=== PATIENT | female | born 1980 | race Hispanic/Latino ===

== ENCOUNTER 2017-12-01 16:45 | Inpatient (IN) | payer MEDICAID, OTHER ==
[2017-12-01 17:56] LABS: BASO # 0.1 K/uL (0.0-0.2); BASO % 0.8 % (0.0-2.0); EOS # 0.2 K/uL (0.0-0.7); EOS % 2.1 % (0.0-4.0); HEMOGLOBIN 11.8 g/dL (11.0-16.0); LYMPH # 3.7 K/uL (1.0-4.3); LYMPH % 32.2 % (20.0-40.0); MEAN CELL VOLUME 85.6 fL (81.0-99.0); MEAN CORPUSCULAR HEMOGLOBIN 29.2 pg (27.0-31.0); MEAN CORPUSCULAR HGB CONC 34.1 g/dL (33.0-37.0); MEAN PLATELET VOLUME 6.8 fL (7.2-11.7); MONO # 0.6 K/uL (0.0-0.8); MONO % 5.3 % (0.0-10.0); NEUT # 6.9 K/uL (1.8-7.0); NEUT % 59.6 % (50.0-75.0); NRBC % 0.1 % (0.0-2.0); RBC 4.02 Mil/uL (3.80-5.20); RED CELL DISTRIBUTION WIDTH 13.5 % (11.5-14.5); WHITE BLOOD COUNT 11.6 K/uL (4.8-10.8)
[2017-12-01 18:06] LABS: SQUAMOUS EPITHIAL 12 /hpf (0-5); URINE BILIRUBIN NEGATIVE (NEGATIVE); URINE BLOOD NEGATIVE (NEGATIVE); URINE CLARITY Hazy (Clear); URINE COLOR Yellow (YELLOW); URINE GLUCOSE (UA) NORMAL (Normal); URINE LEUKOCYTE ESTERASE NEG Leu/uL (Negative); URINE PROTEIN NEGATIVE (NEGATIVE)
[2017-12-01 18:08] LABS: HCG,QUALITATIVE URINE POSITIVE (NEGATIVE)
[2017-12-01 18:15] LABS: ALB/GLOB RATIO 1.1 (1.0-2.1); ALBUMIN 3.6 g/dL (3.5-5.0); ALT/SGPT 21 U/L (9-52); AST/SGOT 17 U/L (14-36); BLOOD UREA NITROGEN 6 mg/dL (7-17); CALCIUM 8.8 mg/dl (8.6-10.4); GFR AFRICAN-AMERICAN > 60; GFR NON-AFRICAN AMERICAN > 60
[2017-12-01 18:27] LABS: BARBITURATES, UR NEGATIVE (NEGATIVE); BENZODIAZEPINES, UR NEGATIVE (NEGATIVE); PHENCYCLIDINE, UR NEGATIVE (NEGATIVE)
[2017-12-01 18:31] LABS: OPIATES, UR POSITIVE (NEGATIVE)
--- NOTE | 2017-12-01 19:44 | C.PDOC ---
History Of Present Illness Pt is here requesting detox from opioid pain pills. She also states that she is 8 weeks . She has documentation from another ER stating that she has an IUP. Time Seen by Provider: 12/01/17 18:14 Chief Complaint (Nursing): Substance Abuse History Per: Patient, Family Onset/Duration Of Symptoms: Days Current Symptoms Are (Timing): Still Present Suicide/Self Injury Attempted (Context): None Modifying Factor(s): Narcotics Severity: Moderate Associated Symptoms: denies: Suicidal Thoughts, Suicidal Plan Additional History Per: Prior Records Past Medical History Reviewed: Historical Data, Nursing Documentation, Vital Signs Vital Signs: Last Vital Signs Temp 97.8 F 12/01/17 17:03 Pulse 71 12/01/17 17:03 Resp 18 12/01/17 17:03 BP 112/71 12/01/17 17:03 Pulse Ox 98 12/01/17 17:03 - Medical History PMH: Back Problems Family History: States: Unknown Family Hx - Social History Hx Tobacco Use: Yes Hx Alcohol Use: No Hx Substance Use: Yes (opiates) - Immunization History Hx Tetanus Toxoid Vaccination: Yes Hx Influenza Vaccination: Yes Hx Pneumococcal Vaccination: No Review Of Systems Except As Marked, All Systems Reviewed And Found Negative. Constitutional: Negative for: Fever, Weakness Cardiovascular: Negative for: Chest Pain Respiratory: Negative for: Shortness of Breath Gastrointestinal: Positive for: Abdominal Pain Genitourinary: Negative for: Vaginal Bleeding Musculoskeletal: Negative for: Neck Pain Skin: Negative for: Rash Neurological: Negative for: Weakness, Numbness Physical Exam - Physical Exam Appears: Non-toxic, No Acute Distress Skin: Normal Color, Warm, Dry, No Rash Head: Atraumatic, Normacephalic Eye(s): bilateral: Normal Inspection, PERRL, EOMI Neck: Normal ROM, Supple Cardiovascular: Rhythm Regular Respiratory: Normal Breath Sounds, No Accessory Muscle Use Gastrointestinal/Abdominal: Soft, Tenderness (cramping pain), No Guarding, No Rebound Back: No CVA Tenderness Extremity: Normal ROM Neurological/Psych: Oriented x3, Normal Motor, Normal Sensation ED Course And Treatment - Laboratory Results Result Diagrams: 12/01/17 17:22 12/01/17 17:22 Lab Interpretation: No Acute Changes Urine POC: Positive O2 Sat by Pulse Oximetry: 98 Pulse Ox Interpretation: Normal Disposition Counseled Patient/Family Regarding: Studies Performed, Diagnosis, Smoking Cessation - Disposition Disposition: HOSPITALIZED Disposition Time: 19:46 Condition: STABLE - Clinical Impression Clinical Impression: Opioid dependence, Decision To Admit - Pt Status Changed To: Hospital Disposition Of: Inpatient - Admit Certification Admit to Inpatient:: After my assessment, the patient will require hospitalization for at least two midnights. This is because of the severity of symptoms shown, intensity of services needed, and/or the medical risk in this patient being treated as an outpatient. - InPatient: Physician Admission Certification: I certify that this patient requires 2 or more midnights of care for the following reason:: Detox. - . Bed Request Type: Detox Admitting Physician: Xenia Hardin Patient Diagnosis: Opioid dependence
--- NOTE | 2017-12-01 21:08 | PCM.BM ---
Treatment Plan Problems - Problems identified on initial assessmt Substance Abuse Date Initiated: 12/01/17 Time Initiated: 21:06 Assessment reference: NA Status: Active Treatment assets and liabiliti Patient Assests: adapts well, cooperative, motivated, ADL independent, physically healthy, negotiates basic needs, cognitively intact Patient Liabilities: live alone (Lives with boyfriend), substance abuse (Opiates , Methadone), medical problems (Back Injury x4 months ago) - Milieu Protocol Maintain good personal hygiene: daily Encourage regular showers, daily Remind patient to perform daily oral care, daily Assist patient to perform ADL's (Self) Conduct patient checks and document Observation sheet: Q15 minutes (Safety) Maintain personal safety: every shift Educate patient to report safety concerns to staff, every shift Monitor environment for contraband/sharps Medication safety: Monitor for expected outcome, potential side effects: every shift, Assess barriers to learning: every shift, Assess readiness for medication education: every shift
[2017-12-01] MEDS ORDERED: Aluminum Hydroxide/Magnesium Hydroxide Susp (30 mL) PO PRN (22:12)
[2017-12-02] MEDS: Multiple Vitamins Tab PO SCH (09:28)
--- NOTE | 2017-12-02 21:38 | CP.PCM.CON ---
History of Present Illness - History of Present Illness History of Present Illness: 37 y/o @ ~ 8 wks as per pt states LMP unknown and dated by US at other ER with IUP admitted to detox unit reports abodminal pain that comes and goes x 1 hour. pt denies any nause, vomitng, CP, SOB, dysuira, urgency, freuqency, constipation or fevers, but reprots chills. pt denies any alleviating or exacerbating factors. Pt reports pain localized to lower abdomen and pelvis, reports hard to describe. pt reprots she would like to continue care of and has an OBGYN. Pt reprots she does not want any pain medication because she states she knows it can affect the baby. OB: SAB DxC, Ruptured Ectopic TRANSCRIPTION TYPIST: Cannot remember courtesy clerk name, last visit unknown, denies any pertient hx of abnromal pap, fibroids, ovarian cyst, STI PMH: Denies, ? Umbilical hernia PSH: DxC, Ex Lap Salpingectomy FHX: denies SHX: hx of Toabccous use 1ppd/x 22 years now on nicotine replacement patch MEDS: Currently methadone Review of Systems - Review of Systems All systems: reviewed and no additional remarkable complaints except - Constitutional Constitutional: Chills - Cardiovascular Cardiovascular: absent: As Per HPI, Acrocyanosis, Chest Pain, Chest Pain at Rest , Chest Pain with Activity, Claudication, Diaphoresis, Dyspnea, Dyspnea on Exertion, Edema, Irregular Heart Rhythm, Pain Radiating to Arm/Neck/Jaw, Leg Edema, Leg Ulcers, Lightheadedness, Orthopnea, Palpitations, Paroxysmal Nocturnal Dyspnea, Pedal Edema, Radiating Pain, Rapid Heart Rate, Slow Heart Rate, Syncope, Other - Gastrointestinal Gastrointestinal: Abdominal Pain. absent: As Per HPI, Belching, Bloating, Change in Bowel Habits, Change in Stool Character, Coffee Ground Emesis, Constipation, Cramping, Diarrhea, Dyspepsia, Dysphagia, Early Satiety, Excessive Flatus, Fecal Incontinence, Heartburn, Hematemesis, Hematochezia, Loose Stools, Melena, Nausea, Odynophagia, Temesmus, Vomiting, Other - Genitourinary Genitourinary: As Per HPI. absent: Change in Urinary Stream, Difficulty Urinating, Dysuria, Flank Pain, Hematuria, Pyuria, Nocturia, Urinary Incontinence, Urinary Frequency, Urinary Hesitance, Urinary Urgency, Voiding Freq/Small Amts, Freq UTI, Hx Renal/Bladder Calculi, Hx /Renal Surgery, Bladder Distension, Other - Reproductive: Female Reproductive:Female: As Per HPI - Menstruation Menstruation: As Per HPI - Musculoskeletal Musculoskeletal: As Per HPI Past Patient History - Past Social History Smoking Status: Heavy Smoker > 10 Cigarettes Daily - CARDIAC Hx Cardiac Disorders: No Hx Hypertension: No - PULMONARY Hx Tuberculosis: No - NEUROLOGICAL HX Cerebrovascular Accident: No Hx Seizures: Yes (The patient reports having a seizure at 23 years old, but not recent) - HEMATOLOGICAL/ONCOLOGICAL Hx Cancer: No Hx Human Immunodeficiency Virus (HIV): No - MUSCULOSKELETAL/RHEUMATOLOGICAL Hx Falls: No - GENITOURINARY/GYNECOLOGICAL Hx Sexually Transmitted Disorders: No - PSYCHIATRIC Hx Substance Use: Yes (Opiates, Percocet) - SURGICAL HISTORY Hx Surgeries: Yes Hx Dilation and Curettage: Yes Hx Tubal Ligation: Yes - ANESTHESIA Hx Anesthesia: Yes Hx Anesthesia Reactions: No Hx Malignant Hyperthermia: No Meds Allergies/Adverse Reactions: Allergies Allergy/AdvReac Type Severity Reaction Status Date / Time hydrocodone Allergy RASH Verified 12/01/17 17:08 ibuprofen Allergy RASH Verified 12/01/17 17:08 - Medications Medications: Current Medications Al Hydrox/Mg Hydrox/Simethicone (Maalox 30 Ml) 30 ml PO TID PRN PRN Reason: Indigestion / Heartburn Clonidine HCl (Catapres) 0.1 mg PO Q8 PRN PRN Reason: COWS Score More or Equal to 5 Loperamide HCl (Imodium) 2 mg PO Q8 PRN PRN Reason: Diarrhea Multivitamins (Hexavitamin) 1 tab PO DAILY [facility] Last Admin: 12/02/17 09:28 Dose: 1 tab Nicotine (Nicoderm Cq) 1 patch TD DAILY [facility] Last Admin: 12/02/17 14:05 Dose: 1 patch Ondansetron HCl (Zofran Tab) 4 mg PO Q8 PRN PRN Reason: Nausea/Vomiting Last Admin: 12/02/17 15:59 Dose: 4 mg Pneumococcal Polyvalent Vaccine (Pneumovax 23 Vaccine) 0.5 ml IM .ONCE ONE Stop: 12/04/17 10:01 Pseudoephedrine HCl (Sudafed Tab) 60 mg PO QID PRN PRN Reason: Nasal/Sinus Congestion Physical Exam - Constitutional Appears: No Acute Distress - Head Exam Head Exam: ATRAUMATIC, NORMAL INSPECTION - Eye Exam Eye Exam: EOMI, Normal appearance Pupil Exam: NORMAL ACCOMODATION - ENT Exam ENT Exam: Mucous Membranes Moist - Neck Exam Neck exam: Positive for: Normal Inspection - Respiratory Exam Respiratory Exam: NORMAL BREATHING PATTERN - Cardiovascular Exam Cardiovascular Exam: +S1, +S2 - GI/Abdominal Exam GI & Abdominal Exam: Soft Additional comments: TTP suprapubic, no guarding, no rebound tendernses, no rigidity, +Umbilical hernia (non tender) - Exam Additional comments: Declined internal exam - Extremities Exam Extremities exam: Negative for: calf tenderness, full ROM, joint swelling, normal capillary refill, normal inspection, pedal edema, tenderness, pedal pulses present - Back Exam Back exam: NORMAL INSPECTION Additional comments: no CVA b/l - Skin Skin Exam: Dry, Intact, Normal Color Results - Vital Signs Recent Vital Signs: Last Vital Signs Temp 98.2 F 12/02/17 20:39 Pulse 67 12/02/17 20:39 Resp 18 12/02/17 20:39 BP 106/63 12/02/17 20:39 Pulse Ox 100 12/02/17 20:39 - Labs Result Diagrams: 12/01/17 17:22 12/01/17 17:22 Assessment & Plan (1) Abdominal pain affecting Assessment and Plan: 1. US: Dating, evaluate viability 2. Pain management as per Primary Team 3. Labs: Beta hcg, progesterone, CBC, CMP, UA, Urine Cx, Type and screen 4. Smoking cessation encouarged 5. Daily vitamin 6. Methadone as per primary team 7. Recommend MFM Consult upon discharge Status: Acute
--- NOTE | 2017-12-02 23:30 | PCM.PSYCH ---
Initial Psychiatric Evaluation - Initial Psychiatric Evaluation Type of Admission: Voluntary Legal Status: Capacity Chief Complaint (in patient's own words): I need help for my drug use. History of Present Illness and Precipitating Events: patient is a 37 years old, single, unemployed, lives with boyfriend, female with no previous psychiatric history was admitted due to withdrawing from opiates. Patient is 8 weeks . Patient reported using Percocet for last 4 months. Initially prescribed but later more than prescribed, was taking up to 6 Percocet dontrell. Last had 2 days ago. Her urine drug screen was. Patient reported thatshe was taking methadone up to 60 mg almost daily for last few days. Denied use of any other drugs including cocaine, cannabis and heroin. patient smokes one pack of cigarett and is requesting for nicotine patch. Patient is currently 8 weeks . She has history of one ectopic in the past. Patient was born in [place], she was in college. Not working. Lives with boyfriend and is supported by her boyfriend. Her height is 5 feet 4 inches and weight is 162 pounds. Current Medications: Active Medications Generic Name Dose Route Start Last Admin Trade Name Freq PRN Reason Stop Dose Admin Al Hydrox/Mg Hydrox/Simethicone 30 ml 12/01/17 22:12 Maalox 30 Ml PO TID PRN Indigestion / Heartburn Clonidine HCl 0.1 mg 12/01/17 22:12 Catapres PO Q8 PRN COWS Score More or Equal to 5 Loperamide HCl 2 mg 12/01/17 22:12 Imodium PO Q8 PRN Diarrhea Multivitamins 1 tab 12/02/17 10:00 12/02/17 09:28 Hexavitamin PO 1 tab DAILY [facility] Administration Nicotine 1 patch 12/02/17 14:00 12/02/17 14:05 Nicoderm Cq TD 1 patch DAILY [facility] Administration Ondansetron HCl 4 mg 12/01/17 22:12 12/02/17 15:59 Zofran Tab PO 4 mg Q8 PRN Administration Nausea/Vomiting Pneumococcal Polyvalent Vaccine 0.5 ml 12/04/17 10:00 Pneumovax 23 Vaccine IM 12/04/17 10:01 .ONCE ONE Pseudoephedrine HCl 60 mg 12/01/17 22:12 Sudafed Tab PO QID PRN Nasal/Sinus Congestion Past Psychiatric History - Past Psychiatric History Previous Treatment History: None History of Abuse: one reported History of ETOH/Drug Use: ee HPI History of Family Illness: reported both of her parents has history of alcohol use disorder. Pertinent Medical Hx (Current Medical&Sleep Prob, Allergies): Allergies Allergy/AdvReac Type Severity Reaction Status Date / Time hydrocodone Allergy RASH Verified 12/01/17 17:08 ibuprofen Allergy RASH Verified 12/01/17 17:08 Ondansetron [Zofran] 4 mg PO Q4 PRN 12/01/17 Oxycodone HCl/Acetaminophen [Percocet 10-325 mg Tablet] 3 each PO QID 12/01/17 Review of Systems - Psychiatric Psychiatric: Anxiety, Other Mental Status Examination - Personal Presentation Personal Presentation: Looks stated age - Affect Affect: Other (APPROPRIATE) - Motor Activity Motor Activity: Calm - Reliability in Providing Information Reliability in Providing Information: Fair - Speech Speech: Organized - Mood Mood: Anxious - Formal Thought Process Formal Thought Process: No Impairment Additional comments: NONE - Hallucinations/Delusions Hallucinations: Other (NONE REPORTED) Delusions: Other - Obsessions/Compulsions Obsessions: None Compulsions: None - Cognitive Functions Orientation: Person, Place, Situation Sensorium: Alert Attention/Concentration: Attentive Abstract Thinking: Aniwa Estimate of Intelligence: Average Judgement: Intact, as evidence by: Insight regarding need for hospitalization Memory: Recent intact, as evidence by: Ability to recall events of the day, Remote intact, as evidenced by: Ability to recall historical events - Risk Risk: Withdrawal, Diminished functioning - Strength & Assets Inventory Strength & Assets Inventory: Cooperative - Limitations Limitations: Other DSM 5 DX - DSM 5 DSM 5 Diagnosis: OPIATE USE DISORDER SEVERE - Recommended/Plan of Treatment Treatment Recommendations and Plan of Treatment: PATIENT EDUCATION Supportive therapy CBT for relapse prevention NE for abstinence Discussed with patient about methadone maintenance or detox. Patient will decide and will do accordingly. Projected ELOS: 45 days - Smoking Cessation Smoking Cessation Initiated: Yes
--- NOTE | 2017-12-02 23:52 | US ---
EXAM: US First Trimester, Transabdominal US , Transvaginal CLINICAL HISTORY: 37 years old, female; Pain; complicated by abdominal or pelvic pain; Generalized abdominal pain; First trimester; Gestational age or lmp: 8wks5d; ; Additional info: 8 weeks iup as pt? Abdomina pain, HX of ectopic TECHNIQUE: Real-time transabdominal and transvaginal obstetrical ultrasound of the maternal pelvis and a first trimester with image documentation. Transvaginal imaging was used for better evaluation of the fetus and adnexa. COMPARISON: No relevant prior studies available. FINDINGS: Gestation: Single live intrauterine gestation. heart rate of 144 beats per minute. Balm-rump length of 1.9 cm, correlating with gestational age of 8 weeks 3 days. Uterus/cervix: Retroverted uterus. No subchorionic hemorrhage. No cervical dilatation or effacement. Ovaries: RIGHT ovary: Normal. LEFT ovary: Probable 1.3 x 1.0 x 1.1 cm corpus luteal cyst. No adnexal masses. Free fluid: No significant free fluid. IMPRESSION: 1. Single live intrauterine gestation. 2. Incidental/non-acute findings are described above.
[2017-12-03 06:49] VITALS: O2SAT 98
[2017-12-03 07:45] LABS: SQUAMOUS EPITHIAL 2 /hpf (0-5); URINE BILIRUBIN NEGATIVE (NEGATIVE); URINE BLOOD NEGATIVE (NEGATIVE); URINE CLARITY Clear (Clear); URINE COLOR Yellow (YELLOW); URINE GLUCOSE (UA) NORMAL (Normal); URINE LEUKOCYTE ESTERASE NEG Leu/uL (Negative); URINE PROTEIN NEGATIVE (NEGATIVE); URINE UROBILINOGEN NORMAL mg/dL (0.2-1.0)
--- NOTE | 2017-12-03 07:56 | CP.PCM.PN ---
Subjective - Date & Time of Evaluation Date of Evaluation: 12/03/17 Time of Evaluation: 07:51 - Subjective Subjective: Patient was seen and examined at bedside. Patient complains of abdominal pain, nausea, chills, diarrhea, cramping, and feels like something is crawling in her legs. Patient states her abdominal pain has not improved nor worsened. Patient states she wants to go home because her withdrawal symptoms are worsening and the medication she has received has not worked. Patient denies chest pain, dyspnea, vomiting, fevers. Objective - Vital Signs/Intake and Output Vital Signs (last 24 hours): Temp Pulse Resp BP Pulse Ox 98.0 F 66 18 134/85 98 12/03/17 06:49 12/03/17 06:49 12/03/17 06:49 12/03/17 06:49 12/03/17 06:49 - Medications Medications: Current Medications Al Hydrox/Mg Hydrox/Simethicone (Maalox 30 Ml) 30 ml PO TID PRN PRN Reason: Indigestion / Heartburn Clonidine HCl (Catapres) 0.1 mg PO Q8 PRN PRN Reason: COWS Score More or Equal to 5 Loperamide HCl (Imodium) 2 mg PO Q8 PRN PRN Reason: Diarrhea Multivitamins (Hexavitamin) 1 tab PO DAILY [facility] Last Admin: 12/02/17 09:28 Dose: 1 tab Nicotine (Nicoderm Cq) 1 patch TD DAILY [facility] Last Admin: 12/02/17 14:05 Dose: 1 patch Ondansetron HCl (Zofran Tab) 4 mg PO Q8 PRN PRN Reason: Nausea/Vomiting Last Admin: 12/02/17 15:59 Dose: 4 mg Pneumococcal Polyvalent Vaccine (Pneumovax 23 Vaccine) 0.5 ml IM .ONCE ONE Stop: 12/04/17 10:01 Pseudoephedrine HCl (Sudafed Tab) 60 mg PO QID PRN PRN Reason: Nasal/Sinus Congestion - Labs Labs: 12/01/17 17:22 12/01/17 17:22 - Head Exam Head Exam: ATRAUMATIC, NORMAL INSPECTION - Eye Exam Eye Exam: EOMI - ENT Exam ENT Exam: Mucous Membranes Moist - Respiratory Exam Respiratory Exam: Clear to Ausculation Bilateral, NORMAL BREATHING PATTERN. absent: Rhonchi, Wheezes, Respiratory Distress - Cardiovascular Exam Cardiovascular Exam: REGULAR RHYTHM, +S1, +S2 - GI/Abdominal Exam GI & Abdominal Exam: Soft, Tenderness (diffuse, all quadrants and suprapubic- described as sharp/cramping). absent: Distended, Firm, Guarding - Extremities Exam Extremities Exam: Normal Inspection. absent: Pedal Edema, Tenderness - Neurological Exam Neurological Exam: Alert, Awake, Oriented x3 - Psychiatric Exam Psychiatric exam: Anxious - Skin Skin Exam: Intact, Normal Color, Warm Assessment and Plan - Assessment and Plan (Free Text) Plan: (1) Abdominal pain affecting Assessment and Plan: US: Dating, evaluate viability Methadone, withdrawal symptom and pain management as per psychiatry team Smoking cessation encouraged Daily vitamin Recommend MFM Consult upon discharge Abdominal pain likely secondary to withdrawal symptoms. Continue current management per psychiatry team. OBGYN signing off. May reconsult as needed.
[2017-12-03] MEDS: Multiple Vitamins Tab PO SCH (09:57)
[2017-12-03 11:18] LABS: BASO % 0.3 % (0.0-2.0); EOS # 0.1 K/uL (0.0-0.7); EOS % 0.9 % (0.0-4.0); HEMOGLOBIN 12.5 g/dL (11.0-16.0); LYMPH # 2.4 K/uL (1.0-4.3); MEAN CELL VOLUME 85.7 fL (81.0-99.0); MEAN CORPUSCULAR HEMOGLOBIN 29.6 pg (27.0-31.0); MEAN CORPUSCULAR HGB CONC 34.6 g/dL (33.0-37.0); MEAN PLATELET VOLUME 6.9 fL (7.2-11.7); MONO # 0.4 K/uL (0.0-0.8); NEUT % 70.8 % (50.0-75.0); RBC 4.21 Mil/uL (3.80-5.20); RED CELL DISTRIBUTION WIDTH 13.4 % (11.5-14.5); WHITE BLOOD COUNT 9.9 K/uL (4.8-10.8)
[2017-12-03 11:40] LABS: ALB/GLOB RATIO 1.1 (1.0-2.1); ALBUMIN 3.6 g/dL (3.5-5.0); ALT/SGPT 13 U/L (9-52); AST/SGOT 17 U/L (14-36); BLOOD UREA NITROGEN 9 mg/dL (7-17); GFR AFRICAN-AMERICAN > 60; GFR NON-AFRICAN AMERICAN > 60
[2017-12-03 12:16] VITALS: RESP 20
[2017-12-03 13:03] VITALS: BP 111/73; PULSE 80; TEMP 98.4
--- NOTE | 2017-12-03 13:31 | PCM.PYCHPN ---
Psychiatric Progress Note - Psychiatric Progress Note Patient seen today, length of contact: 15 minutes Patient Chief Complaint: I'm not feeling well. Problems Identified/Issues Discussed: Patient seen, chart reviewed, case discussed with the staff. Issues related to illness and treatment were discussed with the patient. Reported compliant with treatment with no adverse affects. Today patient reported that she was using more than what she explained yesterday. Patient decided to go to methadone maintenance clinic. We will start methadone 10 mg twice a day until patient will get appointment for methadone maintenance clinic. Mood reported as anxious. Affect appropriate. At the time of evaluation, patient was awake alert oriented 3, had no delusions , no auditory or visual hallucinations, no suicidal ideations or homicidal ideations. Aftercare discussed with the patient. Patient wants to go to methadone maintenance clinic. Patient was evaluated by medical and also by RU[employer]ER INS[employer]ATOR. Medical Problems: Diagnostic Results: Reviewed Medication Change: No Medical Record Reviewed: Yes Consults ordered or reviewed: Reviewed Mental Status Examination - Cognitive Function Orientation: Person, Place, Situation, Time Memory: Intact Attention: WNL Concentration: WNL Association: WN Fund of Knowledge: [facility] Decription of patient's judgement and insights: Fair - Mood Mood: Anxious - Affect Affect: Other (APPROPRIATE) - Speech Speech: Appropriate - Formal Thought Process Formal Thought Process: No Impairment Psychotic Thoughts and Behaviors: None - Suicidal Ideation Suicidal Ideation: No - Homicidal Ideation Homicidal Ideation: No Goal/Treatment Plan - Goal/Treatment Plan Need for Continued Stay: Remain at risks for inpatient hospitalization, Discharge may exacerbated symptoms, Severe functional impairment Progress Toward Problem(s) and Goals/Treatment Plan: PATIENT EDUCATION Supportive therapy CBT for relapse prevention CT for abstinence We will start methadone 10 mg twice a day. Estimated Date of D/C: 12/04/17 - Smoking Cessation Smoking Cessation Initiated: Yes
--- NOTE | 2017-12-03 22:37 | PCM.PYCHDC ---
Mental Status Examination - Mental Status Examination Orientation: Person, Place, Situation, Time Description of patient's judgement and insight: Fair Psychotic Thoughts and Behaviors: None Discharge Summary - Discharge Note Laboratory Data: Abnormal Lab Results 12/03/17 12/03/17 12/03/17 07:13 11:10 11:10 WBC 9.9 RBC 4.21 Hgb 12.5 Hct 36.1 MCV 85.7 MCH 29.6 MCHC 34.6 RDW 13.4 Plt Count 339 MPV 6.9 L Neut % (Auto) 70.8 Lymph % (Auto) 24.0 [place] % (Auto) 4.0 Eos % (Auto) 0.9 Baso % (Auto) 0.3 Neut # (Auto) 7.0 Lymph # (Auto) 2.4 [place] # (Auto) 0.4 Eos # (Auto) 0.1 Baso # (Auto) 0.0 Sodium 136 Potassium 3.9 Chloride 103 Carbon Dioxide 22 Anion Gap 15 BUN 9 Creatinine 0.6 L Est GFR ( Amer) > 60 Est GFR (Non-Af Amer) > 60 Random Glucose 132 H Calcium 9.0 Total Bilirubin 0.4 AST 17 ALT 13 Alkaline Phosphatase 50 Total Protein 6.9 Albumin 3.6 Globulin 3.3 Albumin/Globulin Ratio 1.1 Progesterone 26.0 Beta HCG, Quant 091113.00 Urine Color Yellow Urine Clarity Clear Urine pH 7.0 Ur Specific [place] 1.018 Urine Protein Negative Urine Glucose (UA) Normal Urine Ketones Negative Urine Blood Negative Urine Nitrate Negative Urine Bilirubin Negative Urine Urobilinogen Normal Ur Leukocyte Esterase Neg Urine WBC (Auto) 2 Urine RBC (Auto) < 1 Ur Squamous Epith Cells 2 Blood Type Antibody Screen 12/03/17 11:10 WBC RBC Hgb Hct MCV MCH MCHC RDW Plt Count MPV Neut % (Auto) Lymph % (Auto) [place] % (Auto) Eos % (Auto) Baso % (Auto) Neut # (Auto) Lymph # (Auto) [place] # (Auto) Eos # (Auto) Baso # (Auto) Sodium Potassium Chloride Carbon Dioxide Anion Gap BUN Creatinine Est GFR ( Amer) Est GFR (Non-Af Amer) Random Glucose Calcium Total Bilirubin AST ALT Alkaline Phosphatase Total Protein Albumin Globulin Albumin/Globulin Ratio Progesterone Beta HCG, Quant Urine Color Urine Clarity Urine pH Ur Specific [place] Urine Protein Urine Glucose (UA) Urine Ketones Urine Blood Urine Nitrate Urine Bilirubin Urine Urobilinogen Ur Leukocyte Esterase Urine WBC (Auto) Urine RBC (Auto) Ur Squamous Epith Cells Blood Type A POSITIVE Antibody Screen Negative Consultations:: List each consultation separately and include: 1. Reason for request. 2. Findings. 3. Follow-up Consultations: Reviewed Summary of Hospital Course include:: 1. Description of specific treatment plan utilized for patients during their course of treatmen. 2. Summarize the time- course for resolution of acute symptoms and/or regressed behaviors. 3. Describe issues identified and worked on during hospitalization. 4. Describe medication utilized. 5. Describe medical problems identified and treated. 6. Reassessment of suicide risk Summary of Hospital Course: patient is a 37 years old, single, unemployed, lives with boyfriend, female with no previous psychiatric history was admitted due to withdrawing from opiates. Patient is 8 weeks . Patient reported using Percocet for last 4 months. Initially prescribed but later more than prescribed, was taking up to 6 Percocet dontrell. Last had 2 days ago. Her urine drug screen was. Patient reported thatshe was taking methadone up to 60 mg almost daily for last few days. Denied use of any other drugs including cocaine, cannabis and heroin. patient smokes one pack of cigarett and is requesting for nicotine patch. Patient is currently 8 weeks . She has history of one ectopic in the past. Patient was born in [place], she was in college. Not working. Lives with boyfriend and is supported by her boyfriend. Her height is 5 feet 4 inches and weight is 162 pounds. - Final Diagnosis (DSM 5) Condition upon Discharge: STABLE Disposition: AGAINST MEDICAL ADVICE Follow-up Treatment Plan: PATIENT EDUCATION Supportive therapy CBT for relapse prevention [place] for abstinence We will start methadone 10 mg twice a day.
[2017-12-04] MEDS ORDERED: Influenza Vaccine 60 mcg/0.5 mL SYR (4YR UP) IM ONE (10:00)
[2017-12-04] MEDS ORDERED: Pneumococcal 23-Valent Vaccine IM ONE (10:00)
== END 2017-12-03 17:24 | disposition left against medical advice (07) | DRG 886 ==
LOC: C.ER 16:45 → C.7D 19:47
PROVIDERS: ADMIT Psychiatry & Neurology Psychiatry; ATTEND Psychiatry & Neurology Psychiatry
PROC: HZ2ZZZZ Detoxification Services for Substance Abuse Treatment (ICD-10-PCS; principal; 2017-12-01)
PROC: HZ52ZZZ Individual Psychotherapy for Substance Abuse Treatment, Cognitive-Behavioral (ICD-10-PCS; 2017-12-01)
PROC: HZ59ZZZ Individual Psychotherapy for Substance Abuse Treatment, Supportive (ICD-10-PCS; 2017-12-01)
PROC: HZ42ZZZ Group Counseling for Substance Abuse Treatment, Cognitive-Behavioral (ICD-10-PCS; 2017-12-01)
DX: O99.321 Drug use complicating pregnancy, first trimester (principal); F11.23 Opioid dependence with withdrawal; O99.331 Smoking (tobacco) complicating pregnancy, first trimester; F17.210 Nicotine dependence, cigarettes, uncomplicated; Z3A.08 8 weeks gestation of pregnancy